=== PATIENT | male | born 1995 | race Caucasian/White ===

== ENCOUNTER 2019-03-01 18:31 | Emergency (ER) | payer MEDICAID ==
[~2019-03-01] VITALS: Ht 185.4 cm; Wt 83.0 kg
--- NOTE | 2019-03-01 18:44 | NUR ---
ED Nurse Note: Pt came in due to right knee pain after twisting his R knee this morning around 1000. AAO x4, ambulatory, no swelling or obvious defromity.
--- NOTE | 2019-03-01 19:13 | NUR ---
HAND-OFF: Report given to Smith Akhtar RN.
--- NOTE | 2019-03-01 19:15 | NUR ---
ED Nurse Note: received patient from juan carlos melo. patient resting comfortably in chair with nad.
--- NOTE | 2019-03-01 19:34 | NUR ---
ED Nurse Note: applied knee emobilizeron right leg.
[2019-03-01] MEDS ORDERED: NAPROXEN500 M2 ORAL (19:37)
--- NOTE | 2019-03-01 19:37 | Emergency Room Report ---
History of Present Illness General Chief Complaint: Lower Extremity Injury Source: Patient Present Illness HPI 23-year-old male with no significant past medical history here complaining of right knee pain after he was trying to lift luggage today and he felt the laxity in his right knee and fell on his side denies loss of consciousness and head injury. Rating the pain in the right knee 7 out of 10 without radiation. Patient is limping. Denies tingling and numbness. Has not taken medication for pain. Is able to extend and flex his knee without any problems. Denies calf swelling and tenderness. Denies recent injury to the knee or any recent surgery to lower extremities. Denies chest pain, shortness of breath, palpitation, dizziness, nausea vomiting and all other associated symptoms. Allergies: Coded Allergies: No Known Allergies (Unverified , 03/01/19) Patient History Past Medical History: see triage record Past Surgical History: unable to obtain Pertinent Family History: none Immunizations: UTD Reviewed Nursing Documentation: PMH: Agreed; PSxH: Agreed Nursing Documentation-PMH Past Medical History: No Stated History Review of Systems All Other Systems: negative except mentioned in HPI Physical Exam Vital Signs Date Time Temp Pulse Resp B/P (MAP) Pulse Ox O2 Delivery O2 Flow Rate FiO2 03/01/19 18:36 99.0 94 16 138/81 (100) 96 Room Air Sp02 EP Interpretation: reviewed, normal General Appearance: normal inspection, well appearing, no apparent distress, alert, GCS 15 Head: normocephalic, atraumatic Eyes: bilateral eye normal inspection, bilateral eye PERRL ENT: normal ENT inspection, normal pharynx Neck: normal inspection, full range of motion, supple Respiratory: normal inspection, chest non-tender, lungs clear, no rhonchi, no retraction, no accessory muscle use Cardiovascular #1: normal inspection, no edema, no gallop, no murmur, normal capillary refill Cardiovascular #2: 2+ dorsalis pedis (R), 2+ dorsalis pedis (L) Gastrointestinal: normal inspection, soft Musculoskeletal: back normal, non-tender, no calf tenderness, swelling - Right medial knee, other - Negative Melania's Neurologic: normal inspection, alert, oriented x3 Psychiatric: normal inspection, judgement/insight normal Skin: no rash Lymphatic: normal inspection, no adenopathy Procedures Splinting Splinting : Consent: Verbal Location: right knee Pre-Made Type: knee immobilizer Pre-Proc Neuro Vasc Exam: normal Post-Proc Neuro Vasc Exam: normal Patient Tolerated: Well Complications: None Medical Decision Making PA Attestation Diagnosis and treatment plans were reviewed and discussed with my supervising physician Dr. Alvarenga Diagnostic Impression: Primary Impression: Right knee sprain ER Course 23-year-old male with no significant past medical history here complaining of right knee pain after he was trying to lift luggage today and he felt the laxity in his right knee and fell on his side denies loss of consciousness and head injury. Rating the pain in the right knee 7 out of 10 without radiation. Patient is limping. Denies tingling and numbness. Has not taken medication for pain. Is able to extend and flex his knee without any problems. Denies calf swelling and tenderness. Denies recent injury to the knee or any recent surgery to lower extremities. Denies chest pain, shortness of breath, palpitation, dizziness, nausea vomiting and all other associated symptoms. Ddx considered but are not limited to: Knee sprain, strain, fracture, contusion , meniscus tear injury Vital signs: are WNL, pt. is afebrile H&PE are most consistent with: Right knee sprain ORDERS: Knee x-ray, knee immobilizer, naproxen ER intervention: Knee immobilizer DISCHARGE: At this time pt. is stable for d/c to home. Will provide printed patient care instructions, and any necessary prescriptions. Care plan and follow up instructions have been discussed with the patient prior to discharge. I advised the patient to keep the knee immobilizer on until he sees Ortho the purpose of knee immobilizer is mostly for symptom relief as he did not fracture any bones. I advised him to alternate between icing and heating the affected area and elevate. Return to emergency room if worsening symptoms Other X-Ray Diagnostic Results Other X-Ray Diagnostic Results : X-Ray ordered: Right knee # of Views/Limited Vs Complete: 3 View Indication: Pain EP Interpretation: Yes TERESA Xray: Interpretation reviewed, by supervising MD, and agrees with findings. Interpretation: no dislocation, no soft tissue swelling, no fractures Impression: No acute disease Electronically Signed by: Jerod Fox PA-C Last Vital Signs Date Time Temp Pulse Resp B/P (MAP) Pulse Ox O2 Delivery O2 Flow Rate FiO2 03/01/19 18:36 99.0 94 16 138/81 (100) 96 Room Air Disposition: HOME, SELF-CARE Condition: Stable Scripts Naproxen* (NAPROXEN*) 500 Mg Tablet 500 MG ORAL TWICE A DAY, #30 TAB Prov: Jerod Jacob 03/01/19 Patient Instructions: Knee Sprain Additional Instructions: Take medication as directed follow-up with a primary care provider for referral to Ortho and physical therapy alternate between icing and heating the affected area. Jerod Jacob Mar 01, 2019 19:37
[2019-03-01 19:45] VITALS: BP 138/81
--- NOTE | 2019-03-01 19:45 | NUR ---
ER DISCHARGE NOTE: Patient is cleared to be discharged per ERMD, pt is aox4, on room air, with stable vital signs. pt was given dc and prescription instructions, pt was able to verbalize understanding, pt id band removed. pt is able to ambulate with steady gait. pt took all belongings.
--- NOTE | 2019-03-01 20:34 | Diagnostic Imaging Report ---
EXAM: XR Right Knee, 3 views CLINICAL HISTORY: TRAUMA TECHNIQUE: Three views of the right knee. COMPARISON: none FINDINGS: Bones/joints: Unremarkable. No acute fracture. No dislocation. Soft tissues: Unremarkable. IMPRESSION: Normal right knee x-rays.
== END 2019-03-01 19:45 | disposition home or self-care (01) ==
LOC: EMR 19:09
DX: S83.91XA Sprain of unspecified site of right knee, initial encounter (principal); X50.0XXA Overexertion from strenuous movement or load, initial encounter; Y92.9 Unspecified place or not applicable
CPT/HCPCS: 29505; 99283

== ENCOUNTER → 2019-08-14 | Emergency (ER) | payer MEDICAID ==
[~2019-08-14] VITALS: Ht 185.4 cm; Wt 86.2 kg
[~2019-08-14] MED LIST: GUAIFENESI100 MG/5 M ORAL; NAPROXEN500 M2 ORAL; TAMIFLU75 MG ORAL
[2019-08-14 16:54] VITALS: BP 134/70
--- NOTE | 2019-08-14 17:15 | Emergency Room Report ---
History of Present Illness General Chief Complaint: Flu Like Symptoms Source: Patient Present Illness HPI 23-year-old male with no significant past medical history here complaining of 2 days of body aches, chills, cough and congestion with minimal sore throat. Has not taken medication for symptom relief. Denies chest pain, shortness of breath , palpitation, headache or dizziness. Denies tobacco smoke, marijuana use or vaping. Denies urinary complaints. Allergies: Coded Allergies: No Known Allergies (Unverified , 03/01/19) Patient History Past Medical History: see triage record Past Surgical History: unable to obtain Pertinent Family History: none Immunizations: UTD Reviewed Nursing Documentation: PMH: Agreed; PSxH: Agreed Nursing Documentation-PMH Past Medical History: No Stated History Review of Systems All Other Systems: negative except mentioned in HPI Physical Exam Vital Signs Date Time Temp Pulse Resp B/P (MAP) Pulse Ox O2 Delivery O2 Flow Rate FiO2 08/14/19 16:54 98.2 81 17 134/70 (91) 96 Room Air Sp02 EP Interpretation: reviewed, normal General Appearance: no apparent distress, alert, GCS 15, non-toxic Head: normocephalic, atraumatic Eyes: bilateral eye normal inspection, bilateral eye PERRL ENT: normal voice, TMs + canals normal, uvula midline, nasal congestion, pharyngeal erythema Neck: full range of motion, supple, thyroid normal, no meningismus, supple/symm /no masses Respiratory: chest non-tender, lungs clear, normal breath sounds, no rhonchi, no wheezing, speaking full sentences Cardiovascular #1: regular rate, rhythm, no edema, no murmur, normal capillary refill Gastrointestinal: non tender, soft Rectal: deferred Genitourinary: no CVA tenderness Musculoskeletal: back normal, normal range of motion, gait/station normal, non- tender Neurologic: alert, motor strength/tone normal, oriented x3, sensory intact, responsive, speech normal Psychiatric: judgement/insight normal, memory normal, mood/affect normal, no suicidal/homicidal ideation Skin: no rash Lymphatic: no adenopathy Medical Decision Making PA Attestation All my diagnosis and treatment plans were reviewed ad discussed with my supervising physician Dr. Hawkins Diagnostic Impression: Primary Impression: Flu-like symptoms ER Course 23-year-old male with no significant past medical history here complaining of 2 days of body aches, chills, cough and congestion with minimal sore throat. Has not taken medication for symptom relief. Denies chest pain, shortness of breath , palpitation, headache or dizziness. Denies tobacco smoke, marijuana use or vaping. Denies urinary complaints. Ddx considered but are not limited to: strep pharyngitis, URI, tonsillitis, peritonsillar abscess, influenza Vital signs: are WNL, pt. is afebrile H&PE are most consistent with: flulike symptoms ORDERS: Tamiflu, guaifenesin ED INTERVENTIONS: None required at this time. DISCHARGE: At this time pt. is stable for d/c to home. Will provide printed patient care instructions, and any necessary prescriptions. Care plan and follow up instructions have been discussed with the patient prior to discharge. Patient to rest and hydrate, take medication as directed, follow with your primary care provider, worsening symptoms return to the emergency room Last Vital Signs Date Time Temp Pulse Resp B/P (MAP) Pulse Ox O2 Delivery O2 Flow Rate FiO2 08/14/19 16:54 98.2 81 17 134/70 (91) 96 Room Air Disposition: HOME, SELF-CARE Condition: Stable Scripts Guaifenesin* (GUAIFENESIN*) 100 Mg/5 Ml Liquid 5 ML ORAL Q8H, #120 ML 0 Refills Prov: Jerod Jacob 08/14/19 Oseltamivir Phosphate (Tamiflu) 75 Mg Capsule 75 MG ORAL TWICE A DAY for 5 Days, #10 CAP Prov: Jerod Jacob 08/14/19 Jerod Jacob Aug 14, 2019 17:15
== END | disposition home or self-care (01) ==
LOC: EMR 17:24
DX: J11.1 Influenza due to unidentified influenza virus with other respiratory manifestations (principal)
CPT/HCPCS: 99282

== ENCOUNTER 2019-10-21 17:22 | Emergency (ER) | payer MEDICAID ==
[~2019-10-21] VITALS: Ht 188 cm; Wt 79.4 kg
[2019-10-21 17:45] VITALS: BP 123/71
--- NOTE | 2019-10-21 17:49 | NUR ---
ED Nurse Note: Pt walked in from home c/o left wrist pain 03/08. Pt had mechanical fall and fell on the wrist 40 minutes before arrival. Respirations even and unlabored on room air. Vitals stable as documented.
--- NOTE | 2019-10-21 17:50 | NUR ---
ED Nurse Note: xray @ bedside
--- NOTE | 2019-10-21 17:59 | Emergency Room Report ---
History of Present Illness General Chief Complaint: Upper Extremity Injury Present Illness HPI 23-year-old male presents to the emergency department complaining of 8 out of 10 severity localized pain to the left wrist x2 hours. Patient reports he fell backwards and attempted to break the fall with his hand. Patient denies hitting his head or having a loss of consciousness. He reports swelling and tenderness to the left wrist. Patient reports that he is right-hand dominant. Denies numbness tingling or loss of sensation or gross motor movements of the extremities, incontinence of bowel or bladder. Denies CP, Palpitations, LOC, AMS , dizziness, Changes in Vision, weakness or a sudden severe headache. Allergies: Coded Allergies: No Known Allergies (Unverified , 03/01/19) COVID-19 Screening Contact w/high risk pt: No Recent Travel to affected area: No Experienced COVID-19 symptoms?: No Patient History Past Medical History: see triage record Past Surgical History: none Pertinent Family History: none Reviewed Nursing Documentation: PMH: Agreed; PSxH: Agreed Review of Systems All Other Systems: negative except mentioned in HPI Physical Exam Vital Signs Date Time Temp Pulse Resp B/P (MAP) Pulse Ox O2 Delivery O2 Flow Rate FiO2 10/21/19 17:30 98.2 105 20 123/71 (88) 98 Room Air Sp02 EP Interpretation: reviewed, normal General Appearance: no apparent distress, alert, GCS 15, non-toxic Head: normocephalic, atraumatic Eyes: bilateral eye normal inspection, bilateral eye PERRL ENT: hearing grossly normal, normal voice Neck: full range of motion Respiratory: lungs clear, normal breath sounds, speaking full sentences Cardiovascular #1: regular rate, rhythm, normal capillary refill Musculoskeletal: back normal, decreased range of motion - left wrist due to pain., gait/station normal, tender - left wrist, swelling - left wrist., other - visible deformity of the left wrist. No Snuff Box tenderness. Neurologic: alert, motor strength/tone normal, oriented x3, sensory intact, responsive, speech normal Psychiatric: judgement/insight normal Skin: normal color Lymphatic: no adenopathy Medical Decision Making PA Attestation Dr. Arzate is my supervising Physician whom patient management has been discussed with. Diagnostic Impression: Primary Impression: Wrist fracture, closed Qualified Codes: S62.102A - Fracture of unspecified carpal bone, left wrist, initial encounter for closed fracture ER Course 23-year-old male presents to the emergency department complaining of 8 out of 10 severity localized pain to the left wrist x2 hours. Patient reports he fell backwards and attempted to break the fall with his hand. Patient denies hitting his head or having a loss of consciousness. He reports swelling and tenderness to the left wrist. Patient reports that he is right-hand dominant. Denies numbness tingling or loss of sensation or gross motor movements of the extremities, incontinence of bowel or bladder. Denies CP, Palpitations, LOC, AMS , dizziness, Changes in Vision, weakness or a sudden severe headache. Ddx considered but are not limited to Fracture, dislocation, contusion, Sprain/ Strain/Spasm, Epidural abscess, Neoplastic mets. Vital signs: are WNL, pt. is afebrile H&PE are most consistent with musculoskeletal injury will perform imaging to r/ o fractures/dislocations. ORDERS: - X-ray Left wrist 3 views - negative for fx, Dislocation, or significant soft tissue injury, per preliminary read in ED, and signed by TERESA Allen , my supervising physician has reviewed, and agrees with my interpretation. ED INTERVENTIONS: - Motrin PO Left Thumb Spika Splint applied by catechist. Pt. remains neurovascularly intact. -- Left arm Sling applied by catechist. Pt. remains neurovascularly intact. DISCHARGE: At this time pt. is stable for d/c to home. Will provide printed patient care instructions, and any necessary prescriptions. Care plan and follow up instructions have been discussed with the patient prior to discharge. Other X-Ray Diagnostic Results Other X-Ray Diagnostic Results : X-Ray ordered: X-ray left wrist # of Views/Limited Vs Complete: 3 View Indication: Pain EP Interpretation: Yes TERESA Xray: Interpretation reviewed, by supervising MD, and agrees with findings. Interpretation: no dislocation, no soft tissue swelling, no fractures Impression: No acute disease Electronically Signed by: Katheryn Allen PA-C Last Vital Signs Date Time Temp Pulse Resp B/P (MAP) Pulse Ox O2 Delivery O2 Flow Rate FiO2 10/21/19 17:30 98.2 105 20 123/71 (88) 98 Room Air Disposition: HOME, SELF-CARE Condition: Stable Referrals: NOT CHOSEN IPA/MD,REFERRING (PCP) Patient Instructions: Wrist Fracture Additional Instructions: Take medications as directed. Follow up with an AIRPLANE DESIGNER in 3-5 days, even if your symptoms have resolved. If symptoms repeat X-rays may be required at the discretion of your PCP or Ortho Specialist. --Please review list of primary care clinics, if you do not already have a primary care provider who can give you an Orthopedic Referral. Return sooner to ED if new symptoms occur, or current symptoms become worse. Do not drink alcohol, drive, or operate heavy machinery while taking [place] as this may cause drowsiness. - Please note that this Emergency Department Report was dictated using [employer] turbine powerplant mechanic helper technology software, occasionally this can lead to erroneous entry secondary to interpretation by the dictation equipment. Katheryn Allen Oct 21, 2019 17:59
[2019-10-21] MEDS ORDERED: IBUPROFEN600 MG ORAL (18:29)
[2019-10-21] MEDS ORDERED: ACETAMINOPHEN-1 EAC1 ORAL (18:29)
--- NOTE | 2019-10-21 19:03 | NUR ---
ELOPEMENT: Pt's wrist splinted, but before pt received his discharge paperwork with prescriptions, patient eloped.
--- NOTE | 2019-10-22 11:14 | Diagnostic Imaging Report ---
Indication: Left wrist pain Findings: 3 views of the left wrist were obtained. No acute fractures, malalignment, erosions or periostitis are identified. Well-corticated ulnar styloid noted which may be from an old injury or an unfused apophysis. Soft tissues are unremarkable. Impression: No acute findings.
== END 2019-10-21 19:03 | disposition home or self-care (01) ==
LOC: EMR 17:49
DX: S62.102A Fracture of unspecified carpal bone, left wrist, initial encounter for closed fracture (principal); W19.XXXA Unspecified fall, initial encounter; Y92.9 Unspecified place or not applicable
CPT/HCPCS: 29125; 73110; Z7502; 99283